=== PATIENT | female | born 1960 | race Caucasian/White ===

== ENCOUNTER → 2016-07-23 | Outpatient (CLI) | payer MEDICARE, OTHER ==
[~2016-07-23] MED LIST: ACETAMINOPHEN PO; CIPRO PO; FAMOTIDINE PO; KEPPRA750 MG PO; LIBRIUM PO; MULTIVITAMIN W-1 TAB PO; MULTIVITAMIN W/1 TAB PO; VICODIN 5/500 T1 TAB PO
--- NOTE | ~2016-07-23 | MY11 ---
[facility] A Service of [facility] RADIOLOGY TEXT RESULTS PATIENT: AYDE SMITH LOCATION: [facility] : 56 UNIT #: [id number] AGE: [address]: Vicente Robledo MD SEX: F ORDER DR: [id number] [address] [id number] O MR#: [id number] Acc #: [id number] NAME: AYDE SMITH : 1960 SEX: F STUDY DATE/TIME: 07/23/2016 10:26 UNIT: [facility] ROOM: STUDY DESCRIPTION: MY Mammogram Screening [place] Attending Physician: Vicente Robledo M.D. Referring Physician: Vicente Robledo M.D. Ordering Physician: Vicente Robledo M.D. Primary Care Physician: Edmar Peralta M.D. MEDICAL IMAGING REPORT This report is preliminary unless electronic signature is present. EXAM Bilateral digital screening mammogram with CAD 07/23/2016 INDICATIONS 56-year-old female presenting for routine screening. No reported problems and no personal or family history of breast cancer. No surgeries. TECHNIQUE CC and MLO views of the breast were obtained and reviewed with an FDA-approved CAD device. COMPARISON 10/16/2013, 05/22/2012, 05/15/2012. FINDINGS Breast parenchyma is composed of heterogeneously dense breast tissue, and the pattern is unchanged. There is no new dominant nodule or mass in either breast. No new suspicious cluster of microcalcifications. Benign calcifications present. IMPRESSION Negative screening mammogram; 1-year followup recommended. Patients over the age of 40 are entered into a reminder system with target due date for the next mammogram. A result letter will also be sent to the patient. BIRADS: 1 Negative Dictated by... Shyam Olguin M.D. [facility] A Service of [facility] RADIOLOGY TEXT RESULTS PATIENT: AYDE SMITH LOCATION: [facility] : 56 UNIT #: [id number] AGE: [address]: Vicente Robledo MD SEX: F ORDER DR: THIS IS AN ELECTRONICALLY VERIFIED REPORT Shyam Olguin M.D. at 07/26/2016 7:30 AM José Antonio TD: 07/23/2016 17:54 JOB #: [id number] MEDICAL IMAGING REPORT Page 1 of 1
== END | disposition home or self-care (01) ==
LOC: SMAM 09:51
DX: Z12.31 Encounter for screening mammogram for malignant neoplasm of breast (principal)
CPT/HCPCS: G0202